=== PATIENT | male | born 1980 | race American Indian/Alaskan Native ===

== ENCOUNTER 2016-06-27 13:13 | Emergency (ER) | payer OTHER ==
[2016-06-27 13:54] VITALS: BP 156/104
--- NOTE | 2016-06-27 14:56 | Emergency Department Report ---
Chief Complaint: Abdominal Pain Stated Complaint: STOMACH PAIN Time Seen by Provider: 06/27/16 14:48 - HPI History of Present Illness: 36-year-old male presents today with epigastric abdominal pain 3 days. Positive for nausea and vomiting. Denies fever, chills, diarrhea, shortness of breath, urinary symptoms. Positive for history of hypertension. Patient states that he ran out of his medicine 2 days ago. - ROS Review of Systems: Per HPI - Exam Vital Signs: Vital Signs 06/27/16 13:52 Temperature 99.2 F Pulse Rate 113 H Respiratory 18 Rate Blood Pressure 156/104 O2 Sat by Pulse 99 Oximetry Physical Exam: General: 36-year-old male in no acute distress. Well-developed, well-nourished. CV: Tachycardic. Regular rhythm. Lungs: Clear to auscultation bilaterally. Abdomen: Generalized tenderness to palpation. Positive for guarding. Normal bowel sounds. MSE screening note: Focused history and physical exam performed. Due to findings the following was ordered: ED Disposition for MSE Condition: Stable
[2016-06-27 16:02] LABS: Basophils % (Auto) 0.3 % (0.0-1.8); Eosinophils % (Auto) 0.1 % (0.0-4.3); Hematocrit 46.1 % (35.5-45.6); Hemoglobin 15.2 gm/dl (11.8-15.2); Mean Corpuscular HGB Conc 33 % (32-34); Mean Corpuscular Hemoglobin 30 pg (28-32); Mean Corpuscular Volume 90 fl (84-94); Platelet Count 432 K/mm3 (140-440); Red Blood Count 5.12 M/mm3 (3.65-5.03); Red Cell Distribution Width 14.5 % (13.2-15.2); White Blood Count 12.9 K/mm3 (4.5-11.0)
[2016-06-27 16:24] LABS: Anion Gap 26 mmol/L; BUN/Creatinine Ratio 11.11; Blood Urea Nitrogen 10 mg/dL (9-20); Calcium 8.6 mg/dL (8.4-10.2); Carbon Dioxide 21 mmol/L (22-30); Chloride 93.1 mmol/L (98-107); Glucose 97 mg/dL (75-100); Lipase 84 units/L (13-60); Potassium 4.4 mmol/L (3.6-5.0); Sodium 136 mmol/L (137-145)
[2016-06-27 18:16] LABS: Bacteria,Urine 1+ /HPF (Negative); Bilirubin,Urine NEG (Negative); Blood,Urine NEG (Negative); Ketones,Urine 20 mg/dL (Negative); Leukocyte Esterase,Urine NEG (Negative); Mucus,Urine FEW /HPF; Nitrite,Urine NEG (Negative); Urobilinogen,Urine < 2.0 mg/dL (<2.0); WBC,Urine < 1.0 /HPF (0.0-6.0)
--- NOTE | 2016-07-02 16:22 | ED Elopement Review ---
ED Pt Elopement review - Results review Lab results: Laboratory Tests 06/27/16 06/27/16 06/27/16 15:38 15:38 15:38 WBC 12.9 H RBC 5.12 H Hgb 15.2 Hct 46.1 H MCV 90 MCH 30 MCHC 33 RDW 14.5 Plt Count 432 Lymph % (Auto) 11.1 L Dixon % (Auto) 6.6 Eos % (Auto) 0.1 Baso % (Auto) 0.3 Lymph # 1.4 Dixon # 0.9 H Eos # 0.0 Baso # 0.0 Seg Neutrophils % 81.9 H Seg Neutrophils # 10.6 H Sodium 136 L Potassium 4.4 Chloride 93.1 L Carbon Dioxide 21 L Anion Gap 26 BUN 10 Creatinine 0.9 Estimated GFR > 60 BUN/Creatinine Ratio 11.11 Glucose 97 Calcium 8.6 Amylase 79 Lipase 84 H Urine Color Urine Turbidity Urine pH Ur Specific [place] Urine Protein Urine Glucose (UA) Urine Ketones Urine Blood Urine Nitrite Urine Bilirubin Urine Urobilinogen Ur Leukocyte Esterase Urine WBC (Auto) Urine RBC (Auto) U Epithel Cells (Auto) Urine Bacteria (Auto) Urine Mucus 06/27/16 17:30 WBC RBC Hgb Hct MCV MCH MCHC RDW Plt Count Lymph % (Auto) Dixon % (Auto) Eos % (Auto) Baso % (Auto) Lymph # Dixon # Eos # Baso # Seg Neutrophils % Seg Neutrophils # Sodium Potassium Chloride Carbon Dioxide Anion Gap BUN Creatinine Estimated GFR BUN/Creatinine Ratio Glucose Calcium Amylase Lipase Urine Color Yellow Urine Turbidity Clear Urine pH 5.0 Ur Specific [place] 1.026 Urine Protein 100 mg/dl Urine Glucose (UA) Neg Urine Ketones 20 Urine Blood Neg Urine Nitrite Neg Urine Bilirubin Neg Urine Urobilinogen < 2.0 Ur Leukocyte Esterase Neg Urine WBC (Auto) < 1.0 Urine RBC (Auto) 1.0 U Epithel Cells (Auto) < 1.0 Urine Bacteria (Auto) 1+ Urine Mucus Few - Call Back decision Pt Call Back Decision: No action required
== END 2016-06-27 16:00 | disposition left against medical advice (07) ==
LOC: ED 13:13
DX: R10.13 Epigastric pain (principal); R11.2 Nausea with vomiting, unspecified; I10 Essential (primary) hypertension; Z53.21 Procedure and treatment not carried out due to patient leaving prior to being seen by health care provider
CPT/HCPCS: 36415; 80048; 81001; 82150; 83690; 85025

== ENCOUNTER 2018-06-23 23:07 | Emergency (ER) | payer OTHER ==
[2018-06-23] MEDS ORDERED: NACL 0.9% 1000 ML 1,000 ML IV ONE (23:17)
[2018-06-23 23:58] LABS: Hematocrit 47.8 % (35.5-45.6); Hemoglobin 15.6 gm/dl (11.8-15.2); Mean Corpuscular HGB Conc 33 % (32-34); Mean Corpuscular Volume 89 fl (84-94); Platelet Count 355 K/mm3 (140-440); Red Cell Distribution Width 15.6 % (13.2-15.2)
[2018-06-24 00:07] LABS: Alanine Aminotransferase 35 units/L (7-56); Albumin 4.8 g/dL (3.9-5); BUN/Creatinine Ratio 6; Blood Urea Nitrogen 5 mg/dL (9-20); Calcium 8.7 mg/dL (8.4-10.2); Hemolysis Index 5
[2018-06-24] MEDS ORDERED: MORPHINE IV ONE ×2 (01:14→02:00)
[2018-06-24] MEDS ORDERED: ZOFRAN IV ONE (01:14)
--- NOTE | 2018-06-24 01:19 | Emergency Department Report ---
ED Abdominal Pain HPI - General Chief Complaint: Abdominal Pain Stated Complaint: ABD PAIN Time Seen by Provider: 06/24/18 01:01 Source: patient, family Mode of arrival: Ambulatory Limitations: No Limitations - History of Present Illness Initial Comments: 38-year-old male presents to ED with epigastric pain 4 days. Patient has history of alcohol abuse and also pancreatitis. Patient says he does not drink daily but he binge drinks on the weekends. Patient reports epigastric pain, nausea, vomiting. Denies diarrhea and fever. MD Complaint: abdominal pain -: days(s) (4) Location: epigastric Radiation: none Migration to: no migration Severity: severe Severity scale (0 -10): 10 Quality: aching, sharp Consistency: constant Improves With: nothing Worsens With: nothing Context: other (recent alcohol use) Associated Symptoms: nausea, vomiting. denies: diarrhea, fever - Related Data Previous Rx's Medication Instructions Recorded Last Taken Type Folic Acid [Folvite] 1 mg PO QDAY #30 tablet 04/06/15 Unknown Rx Thiamine [Vitamin B-1] 100 mg PO QDAY #30 tablet 04/06/15 Unknown Rx Dicyclomine [Bentyl] 20 mg PO QID PRN #20 tablet 06/24/18 Unknown Rx HYDROcodone/APAP 5-325 [[place] 1 each PO Q6HR PRN #10 tablet 06/24/18 Unknown Rx 5/325] Ondansetron [Zofran Odt] 4 mg PO Q8HR PRN #20 tab.rapdis 06/24/18 Unknown Rx Allergies Allergy/AdvReac Type Severity Reaction Status Date / Time No Known Allergies Allergy Verified 04/01/15 05:03 ED Review of Systems ROS: Stated complaint: ABD PAIN Other details as noted in HPI Comment: All other systems reviewed and negative Constitutional: denies: chills, fever Gastrointestinal: abdominal pain, nausea, vomiting. denies: diarrhea ED Past Medical Hx - Past Medical History Hx GERD: Yes Additional medical history: PANCREATITIS - Surgical History Past Surgical History?: No - Social History Smoking Status: Never Smoker Substance Use Type: Alcohol - Medications Home Medications: Home Medications Medication Instructions Recorded Confirmed Last Taken Type Folic Acid [Folvite] 1 mg PO QDAY #30 tablet 04/06/15 Unknown Rx Thiamine [Vitamin B-1] 100 mg PO QDAY #30 tablet 04/06/15 Unknown Rx Dicyclomine [Bentyl] 20 mg PO QID PRN #20 tablet 06/24/18 Unknown Rx HYDROcodone/APAP 5-325 [[place] 1 each PO Q6HR PRN #10 tablet 06/24/18 Unknown Rx 5/325] Ondansetron [Zofran Odt] 4 mg PO Q8HR PRN #20 tab.rapdis 06/24/18 Unknown Rx ED Physical Exam - General Limitations: No Limitations General appearance: alert, in no apparent distress - Head Head exam: Present: atraumatic, normocephalic - Eye Eye exam: Present: normal appearance - ENT ENT exam: Present: mucous membranes moist - Neck Neck exam: Present: normal inspection - Respiratory Respiratory exam: Present: normal lung sounds bilaterally. Absent: respiratory distress - Cardiovascular Cardiovascular Exam: Present: normal rhythm, tachycardia - GI/Abdominal GI/Abdominal exam: Present: soft, tenderness (epigastric tenderness present). Absent: distended - Extremities Exam Extremities exam: Present: normal inspection - Neurological Exam Neurological exam: Present: alert, oriented X3 - Psychiatric Psychiatric exam: Present: normal affect, normal mood - Skin Skin exam: Present: warm, dry, intact, normal color. Absent: rash ED Course Vital Signs 06/23/18 06/24/18 06/24/18 23:19 00:51 01:00 Temperature 98.6 F 98.6 F Pulse Rate 128 H 111 H 109 H Respiratory 20 17 15 Rate Blood Pressure 152/105 146/101 Blood Pressure 157/106 [Left] O2 Sat by Pulse 97 99 94 Oximetry 06/24/18 06/24/18 06/24/18 01:30 02:00 03:03 Temperature Pulse Rate 109 H Respiratory 15 13 15 Rate Blood Pressure 141/94 Blood Pressure [Left] O2 Sat by Pulse 90 Oximetry 06/24/18 06/24/18 04:00 05:10 Temperature Pulse Rate 116 H Respiratory 14 17 Rate Blood Pressure 148/90 Blood Pressure [Left] O2 Sat by Pulse 94 Oximetry ED Medical Decision Making - Lab Data Result diagrams: 06/23/18 23:33 06/23/18 23:33 - Radiology Data Radiology results: report reviewed, image reviewed - Medical Decision Making 38 year old male with acute on chronic pancreatitis. History of alcohol abuse. LFTs and lipase normal. WBCs minimally elevated. CT abdomen and pelvis scan was ordered due to patient's tachycardia. Only shows mild evidence of pancreatitis, no other abnormalities. Patient has been medicated with morphine and 2 doses of Dilaudid. Patient given 2 L bolus of IV fluids. Patient reports improvement of pain. Will discharge at this time. Return precautions given. Outpatient follow-up given. Patient also informed of the incidental lung findings on CT scan. Advised to have follow-up CT. - Differential Diagnosis pancreatitis, bowel obstruction, dehydration Critical care attestation.: If time is entered above; I have spent that time in minutes in the direct care of this critically ill patient, excluding procedure time. ED Disposition Clinical Impression: Acute alcoholic pancreatitis Disposition: DC- TO HOME OR SELFCARE Is pt being admited?: No Condition: Stable Instructions: Pancreatitis (ED), Abuse of Alcohol (ED) Additional Instructions: You will need to have a routine follow up CT scan of your chest to assess pulmonary nodules seen on tonight's scan. They appear to be blood vessels, however a dedicated Chest CT is needed to officially characterize these findings. Please follow up with your regular doctor or any of the doctors we refer you to today. Prescriptions: Dicyclomine [Bentyl] 20 mg PO QID PRN #20 tablet PRN Reason: abdominal pain HYDROcodone/APAP 5-325 [[place] 5/325] 1 each PO Q6HR PRN #10 tablet PRN Reason: Pain Ondansetron [Zofran Odt] 4 mg PO Q8HR PRN #20 tab.rapdis PRN Reason: Vomiting Referrals: AIDAN MUNOZ [Primary Care Provider] - 3-5 Days Time of Disposition: 06:02
[2018-06-24] MEDS ORDERED: MORPHINE ONE (01:28)
[2018-06-24] MEDS ORDERED: NACL 0.9% 1000 ML 1,000 ML IV ONE (02:39)
[2018-06-24] MEDS ORDERED: DILAUDID IV ONE ×2 (02:39→04:56)
[2018-06-24 04:09] LABS: Bilirubin,Urine NEG (Negative); Blood,Urine SM (Negative); Color,Urine Yellow (Yellow); Hyaline Casts,Urine 12 /LPF; Mucus,Urine FEW /HPF; Urobilinogen,Urine < 2.0 mg/dL (<2.0)
--- NOTE | 2018-06-24 04:50 | Cat Scan Report ---
FINAL REPORT EXAM: CT ABDOMEN PELVIS W CON HISTORY: abdominal pain TECHNIQUE: CT images are acquired through the Abdomen and Pelvis arterial and delayed phases followi ng intravenous administration of contrast. Transaxial, coronal and sagittal reformations are provided . PRIORS: 04/01/2015 FINDINGS: Partially visualized intrathoracic contents are remarkable for posterior medial left lung 15 millimet er nodule with suggested feeding artery and draining vein, which appears similar compared to 04/01/20 15. A partially imaged left perihilar nodule measuring up to 1 cm on axial series 2, image 7 may also be unchanged. A benign 15 millimeter left adrenal adenoma is unchanged from 2015 exam. Hepatomegaly and hepatic michael atosis. The gallbladder, spleen, and right adrenal gland are unremarkable. Minimal stranding adjacent to the pancreatic body. Normally opacified and normal caliber splenic vasculature. Kidneys show no worrisome lesions, hydronephrosis, or calculi. Urinary bladder is unremarkable. Small and large bowel are normal in caliber. Appendix is normal. No free air, free fluid, or lymphade nopathy identified. Aorta is normal in course and caliber. Superficial soft tissues are remarkable for a few anterior abdominal wall subcutaneous soft tissue no dule seen on axial series 2, image 119 and image 123, which may be due to injections. No acute or agg ressive appearing skeletal findings. IMPRESSION: Minimal stranding adjacent to the pancreatic body may be due to acute pancreatitis in the proper clin ical setting. No evident vascular or fluid complications of pancreatitis. No other potentially acute findings seen in the abdomen or pelvis. A couple of pulmonary nodules in the left lower lung measuring up to 15 millimeters are suggestive of arterial venous malformations, particularly in the posterior medial left lower lung. Routine follow- up CT chest with contrast is recommended for additional characterization. Hepatomegaly and hepatic steatosis.
[2018-06-24 05:21] LABS: Basophils % (Manual) 0 % (0.0-1.8); Eosinophils % (Manual) 0 % (0.0-4.3); Total Cells Counted 100
[2018-06-24 05:22] LABS: RBC Morphology Normal
[2018-06-24 06:32] VITALS: BP 151/92
== END 2018-06-24 06:41 | disposition home or self-care (01) ==
LOC: ED 23:07
DX: K85.20 Alcohol induced acute pancreatitis without necrosis or infection (principal); K21.9 Gastro-esophageal reflux disease without esophagitis; F10.129 Alcohol abuse with intoxication, unspecified
CPT/HCPCS: 36415; 74177; 80053; 81001; 83690; 85007; 85025; 96361; 96374; 96375; 96376; 99284; J1170; J2270; J2405; J7030; Q9967